=== PATIENT | female | born 1950 | race Caucasian/White ===

== ENCOUNTER 2017-02-13 07:30 | Inpatient (IN) | payer BC ==
[~2017-02-13] VITALS: Ht 165.1 cm; Wt 64.0 kg
[2017-02-13] MEDS ORDERED: MELO-190 PO (07:59)
[2017-02-13] MEDS: DILTIAZEM 125 MG in DEXTROSE 5% 100 ML IV SCH ×2 (08:00→08:27)
[2017-02-13] MEDS ORDERED: MAGNESIUM SULFATE 1 GM in SODIUM CHLORIDE 0.9% 50 ML IVPB ONE (08:00)
[2017-02-13] MEDS ORDERED: SODIUM CHLORIDE 0.9% 1,000ML IVBOLUS ONE (08:00)
[2017-02-13] MEDS ORDERED: DILTIAZEM 5 MG/ML, 5ML IV ONE (08:00)
[2017-02-13] MEDS ORDERED: SODIUM CHLORIDE 0.9% 1,000 ML IV ONE (08:00)
[2017-02-13] MEDS ORDERED: DILTIAZEM 5 MG/ML, 5ML ONE (08:15)
[2017-02-13] MEDS ORDERED: PLEASE ENTER ALLERGIES MC SCH ×2 (08:30)
[2017-02-13 08:33] LABS: ASPARTATE AMINO TRANSFERASE 12 U/L (15-37); BLOOD UREA NITROGEN 20 mg/dL (7-18)
[2017-02-13 08:44] LABS: IS PT STATUS REG ER OR PRE ER? YES
[2017-02-13] MEDS ORDERED: DIGOXIN 0.25 MG/ML, 2ML IVPush ONE (10:30)
[2017-02-13] MEDS ORDERED: DOCUSATE 100 MG CAPSULE PO PRN (11:00)
[2017-02-13] MEDS ORDERED: ENALAPRILAT 1.25 MG/ML, 2ML IVPush PRN (11:00)
[2017-02-13] MEDS ORDERED: ZOLPIDEM 5MG TABLET PO PRN (11:00)
[2017-02-13] MEDS ORDERED: ONDANSETRON 2MG/ML, 2ML IVPush PRN (11:00)
[2017-02-13] MEDS ORDERED: ONDANSETRON ODT 4 MG PO PRN (11:00)
[2017-02-13] MEDS ORDERED: ACETAMINOPHEN 325 MG TABLET PO PRN (11:00)
[2017-02-13 11:05] VITALS: BP 116/63
[2017-02-13] MEDS: ENOXAPARIN 80 MG/0.8 ML SQ SCH (12:10)
[2017-02-13 12:52] VITALS: BP 100/62
[2017-02-13] MEDS: DIGOXIN 0.25 MG/ML, 2ML IVPush SCH ×2 (15:02→18:39)
[2017-02-13] MEDS ORDERED: METOPROLOL TARTRATE 25 MG TABLET PO SCH (18:00)
[2017-02-13] MEDS: METOPROLOL TARTRATE 25 MG TABLET PO SCH (18:21)
[2017-02-13 20:29] VITALS: BP 93/56
[2017-02-13] MEDS: MELOXICAM 15 MG TABLET PO SCH (20:36)
[2017-02-14] MEDS: ENOXAPARIN 80 MG/0.8 ML SQ SCH ×2 (00:08→12:00)
[2017-02-14 00:10] VITALS: BP_SYST 101; BP_SYST 107; BP_DIAS 64; BP_DIAS 66
[2017-02-14 05:05] LABS: BLOOD UREA NITROGEN 21 mg/dL (7-18)
[2017-02-14 08:25] VITALS: BP 118/75
[2017-02-14] MEDS ORDERED: ASPIRIN 325 MG TABLET PO SCH (08:30)
[2017-02-14] MEDS: METOPROLOL TARTRATE 25 MG TABLET PO SCH (08:34)
[2017-02-14] MEDS: MELOXICAM 15 MG TABLET PO SCH (08:34)
[2017-02-14] MEDS ORDERED: SENNA/DOCUSATE TABLET PO SCH (09:00)
[2017-02-14] MEDS ORDERED: [UNRECOGNIZED DRUG - REMARK] MC SCH (09:00)
[2017-02-14] MEDS ORDERED: ASPI-621 PO (09:38)
[2017-02-14] MEDS ORDERED: METO25TA35 PO (09:38)
[2017-02-15] MEDS ORDERED: ASPIRIN 81 MG TABLET EC PO SCH (06:00)
== END 2017-02-14 13:07 | disposition home or self-care (01) | DRG 309 ==
LOC: ED 08:49 → EDIP 09:27 → 5SO 11:02
PROVIDERS: ADMIT Hospitalist; ATTEND Hospitalist
DX: I48.0 Paroxysmal atrial fibrillation (principal); D68.69 Other thrombophilia; I95.9 Hypotension, unspecified; M19.90 Unspecified osteoarthritis, unspecified site; Z90.49 Acquired absence of other specified parts of digestive tract; Z79.899 Other long term (current) drug therapy
CPT/HCPCS: 36415; 71010; 80048; 80053; 83735; 83880; 84436; 84443; 84484; 85025; 85610; 93005; 93306; 96365; 96375; J1650; J3475; J1160; J7030

== ENCOUNTER 2017-12-29 07:33 | Inpatient (IN) | payer MEDICARE, BC ==
[~2017-12-29] VITALS: Ht 165.1 cm; Wt 78.8 kg
[~2017-12-29 07:33] MED LIST: ASPI-621 PO; MELO7.5T31 PO; METO25TA35 PO
[2017-12-29] MEDS ORDERED: VERAPAMIL 2.5 MG/ML, 2ML IVPush ONE (08:13)
[2017-12-29] MEDS ORDERED: metoprolol succinate (08:18)
[2017-12-29] MEDS ORDERED: DIGOXIN 0.25 MG/ML, 2ML IVPush ONE (08:30)
[2017-12-29] MEDS ORDERED: SODIUM CHLORIDE FLUSH 10ML SYR IVF ONE (08:30)
[2017-12-29 08:40] LABS: BASOPHILS # (AUTO) 0.02 x10^3/uL (0-0.1); BASOPHILS % (AUTO) 0 % (0-1); EOSINOPHILS # (AUTO) 0.09 x10^3/uL (0-0.4); EOSINOPHILS % (AUTO) 2 % (1-7); LYMPHOCYTES # (AUTO) 1.17 x10^3/uL (1-3.4); LYMPHOCYTES % (AUTO) 22 % (22-44); MD NO; MEAN CORPUSCULAR HEMOGLOBIN 30.9 pg (27.0-34.8); MEAN CORPUSCULAR HGB CONC 33.4 g/dL (32.4-35.8); MEAN CORPUSCULAR VOLUME 92.5 fL (80-100); MONOCYTES # (AUTO) 0.51 x10^3/uL (0.2-0.8); MONOCYTES % (AUTO) 10 % (2-9); NEUTROPHILS # (AUTO) 3.43 x10^3/uL (1.8-6.8); NEUTROPHILS % (AUTO) 66 % (42-75); PLATELET COUNT 219 x10^3/uL (130-400); RED CELL DISTRIBUTION WIDTH 15.2 % (9.6-15.2)
[2017-12-29 08:49] LABS: ALANINE AMINOTRANSFERASE 26 U/L (12-78); ALBUMIN 3.4 g/dL (3.4-5.0); CALCIUM 8.5 mg/dL (8.5-10.1)
[2017-12-29] MEDS ORDERED: DIGOXIN 0.25 MG/ML, 2ML ONE ×2 (08:52→08:55)
[2017-12-29] MEDS ORDERED: VERAPAMIL 2.5 MG/ML, 2ML ONE (08:52)
[2017-12-29 08:54] LABS: ALKALINE PHOSPHATASE 57 U/L (45-117); BILIRUBIN,TOTAL 0.4 mg/dL (0.2-1.0); TOTAL PROTEIN 6.6 g/dL (6.4-8.2); TROPONIN I < 0.015 ng/mL (0.000-0.045)
[2017-12-29 09:01] LABS: ANION GAP 10 mmol/L (5-15); CHLORIDE 113 mmol/L (98-107)
[2017-12-29] MEDS ORDERED: AMIODARONE 50 MG/ML, 3ML IVPush ONE (12:00)
[2017-12-29] MEDS ORDERED: AMIODARONE 50 MG/ML, 3ML ONE (12:21)
[2017-12-29] MEDS ORDERED: LABETALOL 5MG/ML, 20ML IVPush PRN (13:00)
[2017-12-29] MEDS ORDERED: POLYETHYLENE GLYCOL 17 GM PACKET PO PRN (13:00)
[2017-12-29] MEDS ORDERED: ONDANSETRON 2MG/ML, 2ML IVPush PRN (13:00)
[2017-12-29] MEDS ORDERED: ONDANSETRON ODT 4 MG PO PRN (13:00)
[2017-12-29 13:10] VITALS: BP 96/64
[2017-12-29 13:18] LABS: FREE T4 (FREE THYROXINE) 1.11 ng/dL (0.76-1.46); THYROID STIMULATING HORMONE 1.4 mIU/L (0.358-3.740)
[2017-12-29] MEDS ORDERED: ENOXAPARIN 40 MG/0.4 ML SQ SCH (14:00)
[2017-12-29 20:00] VITALS: BP 104/67
[2017-12-30 02:00] VITALS: BP 100/58
[2017-12-30 05:32] LABS: BASOPHILS # (AUTO) 0.02 x10^3/uL (0-0.1); BASOPHILS % (AUTO) 0 % (0-1); EOSINOPHILS # (AUTO) 0.09 x10^3/uL (0-0.4); EOSINOPHILS % (AUTO) 2 % (1-7); LYMPHOCYTES # (AUTO) 1.51 x10^3/uL (1-3.4); LYMPHOCYTES % (AUTO) 29 % (22-44); MD NO; MEAN CORPUSCULAR HEMOGLOBIN 31.3 pg (27.0-34.8); MONOCYTES % (AUTO) 10 % (2-9); NEUTROPHILS % (AUTO) 60 % (42-75); PLATELET COUNT 200 x10^3/uL (130-400); RED BLOOD COUNT 4.22 x10^6/uL (3.82-5.3); RED CELL DISTRIBUTION WIDTH 15.4 % (9.6-15.2)
[2017-12-30 05:37] LABS: ALANINE AMINOTRANSFERASE 19 U/L (12-78); ALBUMIN 3.1 g/dL (3.4-5.0); ANION GAP 6 mmol/L (5-15); CALCIUM 8.8 mg/dL (8.5-10.1); CHLORIDE 113 mmol/L (98-107); CREATININE 1.09 mg/dL (0.55-1.02)
[2017-12-30 05:48] LABS: ALKALINE PHOSPHATASE 50 U/L (45-117); BILIRUBIN,TOTAL 0.6 mg/dL (0.2-1.0); TOTAL PROTEIN 6.1 g/dL (6.4-8.2)
[2017-12-30] MEDS ORDERED: ASPIRIN 81 MG TABLET EC PO SCH (06:00)
[2017-12-30 07:00] VITALS: BP 112/71
[2017-12-30] MEDS ORDERED: SODIUM CHLORIDE 0.45% 1,000 ML IV SCH (07:30)
[2017-12-30] MEDS ORDERED: SENNA/DOCUSATE TABLET PO SCH (09:00)
== END 2017-12-30 11:50 | disposition home or self-care (01) | DRG 309 ==
LOC: ED 09:47 → EDIP 10:51 → 5SO 13:06 → DCLOUNGE 12-30 11:37
PROVIDERS: ADMIT Internal Medicine; ATTEND Internal Medicine
DX: I48.0 Paroxysmal atrial fibrillation (principal); D68.69 Other thrombophilia; E87.1 Hypo-osmolality and hyponatremia; M17.0 Bilateral primary osteoarthritis of knee; Z82.3 Family history of stroke
CPT/HCPCS: 36415; 71045; 80053; 83605; 83735; 84100; 84439; 84443; 84484; 85025; 93005; 96374; 99285; J1650; J0282